=== PATIENT | male | born 1935 | race Caucasian/White ===

== ENCOUNTER 2016-03-15 07:47 | Emergency (ER) | payer OTHER ==
[~2016-03-15] VITALS: Ht 188 cm; Wt 81.6 kg
[2016-03-15 07:50] VITALS: BP 151/83; PULSE 90; RESP 16; TEMP 98.1; O2SAT 95
--- NOTE | 2016-03-15 07:51 | NUR ---
Arrived via [facility] S/P ground level trip and fall. Pt has right supraorbital 2 cm lac. Denies KO. Pt is mildly confused which is baseline. Placed in room 5 . Placed on cardiac care nurse, blood pressure machine and pulse oximeter. To gown for exam. Side rails up. Report given to Guille BROOKS.
--- NOTE | 2016-03-15 07:51 | NUR ---
ASSUMED CARE OF PATIENT INTRODUCED SELF, COMFORT MEASURES PROVIDED, SIDE RAILS UP FOR SAFETY MEASURES, AWAITING MD DODD.
[2016-03-15] MEDS ORDERED: DIPH-TET-PERTUS Vaccine 0.5 ML VIAL (ADACEL) I.M. ONE (08:00)
[2016-03-15 08:56] LABS: BASOPHILS % (AUTO) 0.5 % (0.0-2.0); EOSINOPHILS # (AUTO) 0.4 K/uL (0.0-0.4); EOSINOPHILS % (AUTO) 6.4 % (0.0-4.0); HEMATOCRIT 29.5 % (36-54); HEMOGLOBIN 9.7 g/dL (14.0-18.0); LYMPHOCYTES % (AUTO) 16.6 % (20.5-51.5); MEAN CORPUSCULAR HEMOGLOBIN 30 pg (27-31); MEAN CORPUSCULAR HGB CONC 33 % (32-36); MEAN CORPUSCULAR VOLUME 92 fL (79.0-98.0); MONOCYTES # (AUTO) 0.5 K/uL (0.0-1.0); NEUTROPHILS % (AUTO) 67.5 % (40.0-70.0); PLATELET COUNT (AUTO) 179 K/uL (130-430); RED BLOOD CELL COUNT(AUTO) 3.19 MIL/uL (4.2-6.2); WHITE BLOOD COUNT (AUTO) 5.9 K/uL (4.8-10.8)
[2016-03-15 08:57] LABS: ANION GAP 6 (5-15); CALCIUM 8.4 mg/dL (8.4-11.0); CHLORIDE 103 mmol/L (98-107); CREATININE 0.88 mg/dL (0.55-1.30); GLUCOSE 116 mg/dL (70-99); POTASSIUM 3.9 mmol/L (3.5-5.1); SODIUM SERUM 140 mmol/L (136-145); UREA NITROGEN, BLOOD 13 mg/dL (8-21)
[2016-03-15 09:01] LABS: INR 1.1 (0.80-1.20); PROTHROMBIN TIME 11.6 SECS (9.5-12.5)
[2016-03-15 09:02] LABS: ALANINE AMINOTRANSFERASE 25 U/L (12-78); ALBUMIN 2.3 g/dL (3.4-4.8); ASPARTATE AMINOTRANSFERASE 19 U/L (10-37); TOTAL BILIRUBIN 0.6 mg/dL (0.0-1.0); TOTAL PROTEIN, SERUM 6.6 g/dL (6.4-8.3)
--- NOTE | 2016-03-15 09:30 | NUR ---
MAIKEL Tavera at bedside examining patient.
--- NOTE | 2016-03-15 09:50 | NUR ---
STERI STRIP PLACED TO SKIN TEAR ABOVE RIGHT EYELID.
--- NOTE | 2016-03-15 09:51 | NUR ---
PATIENT TAKEN TO XRAY, ESCORTED BY OUTSOLE HANDLER VIA GURNEY. CONDITION STABLE.
--- NOTE | 2016-03-15 10:01 | NUR ---
PATIENT RETURNED FROM XRAY PROCEDURE, UPDATED V/S STABLE, CONDITION STABLE.
--- NOTE | 2016-03-15 10:22 | NUR ---
PATIENT TRANSPORTED OVER TO [place] [facility]IA [facility], CONDITION STABLE.
--- NOTE | 2016-03-15 11:31 | NUR ---
PATIENT RETURNED FROM CT SCAN EXAM [facility]IA [facility] TEAM, CONDITION STABLE.
--- NOTE | 2016-03-15 11:40 | NUR ---
LEANA WOULD LIKE TO BE NOTIFIED OF PT CONDITION [phone].
--- NOTE | 2016-03-15 11:59 | NUR ---
MD COTTON CALLED AND EXPLAINED ABOUT PATIENT NOT NEEDING AN XRAY OF RIGHT HIP DUE TO RECENT RIGHT HIP REPLACEMENT 2 WEEKS AGO. MD COTTON ADMITS TO CONFUSING PATIENT WITH ANOTHER.
--- NOTE | 2016-03-15 13:42 | NUR ---
Called report to Aide RN at [facility] who states that it is ok to send the patient back. Patient sent back to [facility] via [facility].
[2016-03-15 13:44] VITALS: BP 156/105; PULSE 87; RESP 16; TEMP 98
[2016-04-07 01:11] VITALS: O2SAT 95
== END 2016-03-15 13:44 | disposition home or self-care (01) ==
LOC: SED 07:47
DX: S00.211A Abrasion of right eyelid and periocular area, initial encounter (principal); S40.812A Abrasion of left upper arm, initial encounter; S40.811A Abrasion of right upper arm, initial encounter; R51 Headache; W01.0XXA Fall on same level from slipping, tripping and stumbling without subsequent striking against object, initial encounter; Y93.89 Activity, other specified; Y92.89 Other specified places as the place of occurrence of the external cause; Y99.8 Other external cause status
CPT/HCPCS: 36415; 70450; 71010; 73510; 80053; 84484; 85025; 85610; 85730; 90471; 90715; 93005; 99285; J7030